=== PATIENT | male | born 1940 | race Caucasian/White ===

== ENCOUNTER 2017-06-12 09:49 | Day surgery (SDC) | payer OTHER ==
[~2017-06-12] VITALS: Ht 177.8 cm; Wt 61.0 kg
[~2017-06-12 09:49] MED LIST: ACET-76 PO; EUCA30SO NS; GUAI100L6 PO
[2017-06-12] MEDS ORDERED: LACTATED RINGERS 1,000 ML IV SCH ×2 (10:05→13:53)
[2017-06-12] MEDS ORDERED: BUPIVACAINE/PF 0.5% ONE (10:11)
[2017-06-12] MEDS ORDERED: EPINEPHRINE 1 MG/ML, 1ML ONE (10:11)
[2017-06-12 10:22] VITALS: BP 146/78
[2017-06-12] MEDS ORDERED: BUPIVACAINE/PF-EPI 0.5% 1:200K IM ONE (11:30)
[2017-06-12] MEDS ORDERED: MIDAZOLAM 1 MG/ML, 2ML ONE (11:49)
[2017-06-12] MEDS ORDERED: FENTANYL PF 100 MCG/2ML ONE ×3 (11:50→14:01)
[2017-06-12] MEDS ORDERED: SUCCINYLCHOLINE 20 MG/ML, 10ML ONE (12:01)
[2017-06-12] MEDS ORDERED: CEFAZOLIN 1,000 MG ONE (12:01)
[2017-06-12] MEDS ORDERED: GLYCOPYRROLATE 0.2MG/1ML ONE (12:01)
[2017-06-12] MEDS ORDERED: NEOSTIGMINE 1 MG/ML, 10ML ONE (12:01)
[2017-06-12] MEDS ORDERED: ROCURONIUM 10 MG/ML ONE (12:01)
[2017-06-12] MEDS ORDERED: PROPOFOL 10 MG/ML, 20ML ONE (12:01)
[2017-06-12] MEDS ORDERED: DEXAMETHASONE 4 MG/ML, 1ML ONE ×2 (12:01)
[2017-06-12] MEDS ORDERED: FENTANYL PF 100 MCG/2ML IV PRN (14:00)
[2017-06-12] MEDS ORDERED: OXYcodone 5 MG/5 ML ORAL.SOL UDC PO PRN (14:00)
[2017-06-12] MEDS ORDERED: morphine SULFATE 10 MG/ML, 1ML IVPush PRN (14:00)
[2017-06-12] MEDS ORDERED: PROMETHAZINE 25 MG/ML, 1ML IM PRN (14:00)
[2017-06-12] MEDS ORDERED: ONDANSETRON 2MG/ML, 2ML IVPush PRN (14:00)
[2017-06-12] MEDS ORDERED: OXYcodone 5 MG/5 ML ORAL.SOL UDC ONE (14:01)
== END 2017-06-12 16:15 ==
LOC: OUT 09:49
PROVIDERS: ATTEND Surgery
DX: K40.20 Bilateral inguinal hernia, without obstruction or gangrene, not specified as recurrent (principal); Z72.89 Other problems related to lifestyle
CPT/HCPCS: 49505; 93005; C1781; J0171; J0330; J0690; J1100; J2250; J2704; J2710; J3010; J3490; J7120